=== PATIENT | male | born 2000 | race African-American/Black ===

== ENCOUNTER → 2022-05-23 16:56 | Outpatient (CLI) | payer OTHER, SELFPAY ==
--- NOTE | ~2022-05-23 | MR_ITS ---
EXAMINATION: MR femur LT wo con DATE: 05/23/2022 17:56 INDICATION: Left hamstring strain TECHNIQUE: Magnetic resonance imaging (MRI) of the left femur was performed without intravenous contr ast. Sequences included axial, sagittal and coronal T1-weighted FSE and fluid sensitive FSE STIR. The contralateral right thigh is included on the coronal images. COMPARISON: None. FINDINGS: Bone alignment is normal. Normal marrow signal throughout with no fracture or pathologic marrow repla cing process. Bilateral hip and knee joint spaces appear relatively preserved. Menisci appear unremar kable although assessment is more limited on the larger field of view of imaging. No hip or knee join t effusion. Normal and symmetric muscle bulk and signal in the bilateral thighs. Visualized portions of the tendons appear normal. This includes the iliopsoas, gluteal, sartorius, rectus femoris and pro ximal hamstring tendons in the region of the left hip as well as the extensor mechanism at the knee, iliotibial band and medial and lateral hamstring tendons at the knee. The neurovascular bundles in th e left thigh are unremarkable. No pathologically enlarged inguinal lymphadenopathy. IMPRESSION: 1. Normal MRI of the left femur/thigh. Reviewed, dictated and finalized at location A.
== END ==
PROVIDERS: PCP Family Medicine; Visit Provider Family Medicine
DX: S76.312D Strain of muscle, fascia and tendon of the posterior muscle group at thigh level, left thigh, subsequent encounter (principal); X58.XXXD Exposure to other specified factors, subsequent encounter
CPT/HCPCS: 73721